=== PATIENT | female | born 1940 | race Caucasian/White ===

== ENCOUNTER 2017-07-21 07:58 | Outpatient (CLI) | payer MEDICARE, OTHER ==
[~2017-07-21 07:58] MED LIST: ASPI-845 PO; BIOT0.5P PO; CHOL500050 PO; CHRO400T10 PO; CRAN1CAP2 PO; FEXO180T94 PO; FLUT16SP10 NS; FURO-149 PO; GLUC-133 PO; IBUP-24 PO; L. A1CAP7 PO; LEVO88TA2 PO; LOVA20TA2 PO; MAGN400C PO; MULT-1085 PO; NIAC1CAP PO; OMEG1CAP20 PO; POTA10TA10 PO; PRAS25CA7 PO; PROGESTERONE PO; UBID1CAP54 PO; VITC500T PO; [UNRECOGNIZED DRUG - CODE] PO
[2017-07-21 08:41] LABS: BASOPHILS % (AUTO) 0.7 % (0-1); EOSINOPHILS # (AUTO) 0.2 X10'3 (0-0.9); EOSINOPHILS % (AUTO) 4.2 % (0-6); HEMATOCRIT 38.9 % (35.0-45.0); HEMOGLOBIN 13.2 g/dl (12.0-16.0); LYMPHOCYTES # (AUTO) 1.2 X10'3 (1.1-4.8); LYMPHOCYTES % (AUTO) 25.2 % (21-51); MEAN CORPUSCULAR HEMOGLOBIN 31.3 PG (27.0-31.0); MEAN CORPUSCULAR VOLUME 91.9 FL (78-98); MEAN PLATELET VOLUME 7.4 FL (7.4-10.4); MONOCYTES # (AUTO) 0.4 X10'3 (0-0.9); MONOCYTES % (AUTO) 8.2 % (2-12); NEUTROPHILS % (AUTO) 61.7 % (42-75); PLATELET COUNT 258 X10'3 (140-440); RED BLOOD COUNT 4.23 X10'6 (4.20-5.60); RED CELL DISTRIBUTION WIDTH 12.6 % (11.5-14.5); WHITE BLOOD COUNT 4.8 X10'3 (4.5-11.0)
[2017-07-21 08:53] LABS: CHLORIDE 106 MMOL/L (99-107); GLUCOSE 98 MG/DL (70-104); POTASSIUM 4.4 MMOL/L (3.5-5.1); SODIUM 142 MMOL/L (135-145); TOTAL CARBON DIOXIDE 27.8 MMOL/L (24-32)
[2017-07-21 08:54] LABS: ALANINE AMINOTRANSFERASE 25 U/L (12-78); ALBUMIN 3.9 G/DL (3.4-5.0); ALBUMIN/GLOBULIN RATIO 1.1 (1.1-1.5); ALKALINE PHOSPHATASE 67 IU/L (46-116); ANION GAP 8 (8-16); ASPARTATE AMINO TRANSFERASE 21 U/L (10-37); BLOOD UREA NITROGEN 30 MG/DL (7-18); BUN/CREATININE RATIO 27.8 (6.6-38.0); CALCIUM 10.3 MG/DL (8.5-10.1); CREATININE 1.08 MG/DL (0.40-0.90); TOTAL PROTEIN 7.6 G/DL (6.4-8.2); eGFR 50 ML/MIN
== END 2017-07-21 23:59 | disposition home or self-care (01) ==
LOC: LAB 07:58
PROVIDERS: ATTEND Specialist
DX: Z01.818 Encounter for other preprocedural examination (principal); Z51.81 Encounter for therapeutic drug level monitoring; N39.0 Urinary tract infection, site not specified; I10 Essential (primary) hypertension
CPT/HCPCS: 36415; 80053; 85025; 85610; 87070

== ENCOUNTER 2017-08-04 08:35 | Inpatient (IN) | payer MEDICARE, OTHER ==
[~2017-08-04] VITALS: Ht 180.3 cm; Wt 93.3 kg
[2017-08-04] VITALS (17 sets, daily range): BP systolic 124–157; BP diastolic 43–79
[~2017-08-04 08:35] MED LIST changes: +ACET-2119 PO; +ACID1TAB4 PO; +ALPR-623 PO; -ASPI-845 PO; +ASPI81TA52 PO; -BIOT0.5P PO; +CELE-85 PO; +CHOL100034 PO; -CHOL500050 PO; +CHRO200C PO; -CHRO400T10 PO; -CRAN1CAP2 PO; +CRAN300T PO; +DOCU-28 PO; +ENAL10TA78 PO; -GLUC-133 PO; -IBUP-24 PO; -L. A1CAP7 PO; -LOVA20TA2 PO; -MAGN400C PO; +MAGN400T29 PO; -NIAC1CAP PO; +NIAC500T23 PO; -PROGESTERONE PO; +ROSU20TA38 PO; +VITA150T PO; +ZINC50TA4 PO; -[UNRECOGNIZED DRUG - CODE] PO; +acetaminophen 325mg tablet PO ONE; +cefazolin/dext.iso 2gm/50ml 50 ML IV ONE; +celeCOXIB 100mg capsule PO ONE; +famotidine 20mg tablet PO ONE; +gabapentin 300mg capsule PO ONE; +oxyCODONE SR 10mg (sust. release) tab PO ONE; +ringers solution, lacted 1,000 ML IV SCH; +tranexamic acid inj. 1,000 MG in normal saline 100ml IV soln 90 ML IV ONE
[2017-08-04] MEDS ORDERED: LIDOcaine 1% (10mg/ml) 2ml vial ONE (09:05)
[2017-08-04] MEDS ORDERED: bacitracin inj 150,000 UNIT in sodium chloride irrig. sol 3,000 ML IR ONE (10:00)
[2017-08-04] MEDS ORDERED: ROPIVAcaine 0.5% (5mg/ml) 30ml vial ONE (10:14)
[2017-08-04] MEDS ORDERED: MIDAZolam 5mg/5ml vial ONE (10:16)
[2017-08-04] MEDS ORDERED: fentaNYL/PF 50MCG/1 ML 2ML syringe ONE (10:17)
[2017-08-04] MEDS ORDERED: BUPIVAcaine 0.5% inj/PF 30 ml vial ONE (10:23)
[2017-08-04] MEDS ORDERED: morphine /PF 1mg/ml 10ml inj. ONE (10:24)
[2017-08-04] MEDS ORDERED: glycopyrrolate 0.2mg/ml inj ONE (10:45)
[2017-08-04] MEDS ORDERED: ringers solution, lacted 1,000 ML IV SCH (11:46)
[2017-08-04] MEDS ORDERED: diphenhydrAMINE 50 mg/ml inj IV PRN (11:50)
[2017-08-04] MEDS ORDERED: fentaNYL/PF 50MCG/1 ML 2ML syringe IV PRN (11:50)
[2017-08-04] MEDS ORDERED: HYDROmorphone inj. 0.5 MG/0.5 ML DISP.SYRIN IV PRN ×2 (11:50→13:05)
[2017-08-04] MEDS ORDERED: ondansetron/PF 4mg/2ml inj IV PRN ×3 (11:50→13:05)
[2017-08-04] MEDS ORDERED: bisacodyl 10mg suppository rectal RC PRN (13:05)
[2017-08-04] MEDS ORDERED: magnesium hydroxide 30ml (MOM) UD suspension PO PRN (13:05)
[2017-08-04] MEDS ORDERED: acetaminophen 325mg tablet PO PRN (13:05)
[2017-08-04] MEDS ORDERED: diphenhydrAMINE 25mg capsule PO PRN ×2 (13:05)
[2017-08-04] MEDS ORDERED: propofol inj 20 ML IV ONE ×2 (13:29)
[2017-08-04] MEDS ORDERED: ceFAZolin 1000mg inj ONE (13:29)
[2017-08-04] MEDS: potassium cl 20mEq in 1/2 NS 1,000 ML IV SCH ×2 (15:51→23:49)
[2017-08-04] MEDS: ceFAZolin 1GM/D5W- ADD-VANTAGE 50 ML IV SCH ×2 (15:51→23:32)
[2017-08-04] MEDS: ascorbic acid 500mg tablet PO SCH (20:19)
[2017-08-04] MEDS: sennosides 8.6mg tablet PO SCH (20:19)
[2017-08-04] MEDS: gabapentin 300mg capsule PO SCH (20:19)
[2017-08-04] MEDS: oxyCODONE/APAP 10/325mg tablet PO PRN (23:39)
[2017-08-05 02:00] VITALS: BP 160/74
[2017-08-05] MEDS: oxyCODONE/APAP 10/325mg tablet PO PRN ×4 (05:00→23:53)
[2017-08-05] MEDS: potassium cl 20mEq in 1/2 NS 1,000 ML IV SCH ×3 (05:04→21:04)
[2017-08-05 05:24] LABS: BASOPHILS % (AUTO) 0.3 % (0-1); EOSINOPHILS # (AUTO) 0.1 X10'3 (0-0.9); EOSINOPHILS % (AUTO) 1.2 % (0-6); HEMATOCRIT 34.7 % (35.0-45.0); HEMOGLOBIN 11.9 g/dl (12.0-16.0); LYMPHOCYTES # (AUTO) 0.9 X10'3 (1.1-4.8); LYMPHOCYTES % (AUTO) 12.6 % (21-51); MEAN CORPUSCULAR HEMOGLOBIN 31.9 PG (27.0-31.0); MEAN CORPUSCULAR HGB CONC 34.3 % (33.0-36.5); MEAN CORPUSCULAR VOLUME 92.8 FL (78-98); MONOCYTES # (AUTO) 0.5 X10'3 (0-0.9); MONOCYTES % (AUTO) 6.9 % (2-12); NEUTROPHILS # (AUTO) 5.7 X10'3 (1.8-7.7); PLATELET COUNT 195 X10'3 (140-440); RED BLOOD COUNT 3.74 X10'6 (4.20-5.60); RED CELL DISTRIBUTION WIDTH 13.3 % (11.5-14.5); WHITE BLOOD COUNT 7.3 X10'3 (4.5-11.0)
[2017-08-05 05:36] LABS: INR 1.1 INR; PROTHROMBIN TIME 11.1 SECONDS (9.0-12.0)
[2017-08-05 05:39] LABS: ANION GAP 6 (8-16); CHLORIDE 106 MMOL/L (99-107); POTASSIUM 4.6 MMOL/L (3.5-5.1); SODIUM 139 MMOL/L (135-145); TOTAL CARBON DIOXIDE 26.9 MMOL/L (24-32)
[2017-08-05 08:00] VITALS: BP 150/72
[2017-08-05] MEDS: atorvastatin 20mg tablet PO SCH (08:58)
[2017-08-05] MEDS: furosemide 40mg tablet PO SCH (08:58)
[2017-08-05] MEDS: levoTHYROXINE 88mcg tablet PO SCH (08:59)
[2017-08-05] MEDS: potassium chloride 10mEq ER tablet PO SCH (08:59)
[2017-08-05] MEDS: ascorbic acid 500mg tablet PO SCH ×2 (08:59→20:31)
[2017-08-05] MEDS: lisinopril 10 MG tablet PO SCH (08:59)
[2017-08-05] MEDS: multivitamins, therapeutics tablet PO SCH (09:00)
[2017-08-05] MEDS: gabapentin 300mg capsule PO SCH ×3 (09:00→20:44)
[2017-08-05 10:00] VITALS: BP 117/47
[2017-08-05] MEDS ORDERED: warfarin 7.5mg tablet PO ONE (10:00)
[2017-08-05 18:00] VITALS: BP 108/51
[2017-08-05] MEDS: Protein Shake (high protein) 240ml (8oz) cup PO SCH (18:00)
[2017-08-05] MEDS: celeCOXIB 100mg capsule PO SCH (20:30)
[2017-08-05] MEDS: sennosides 8.6mg tablet PO SCH (20:31)
[2017-08-05 22:00] VITALS: BP 91/58
[2017-08-06] VITALS (8 sets, daily range): BP systolic 97–160; BP diastolic 37–77
[2017-08-06] MEDS: oxyCODONE/APAP 10/325mg tablet PO PRN ×3 (04:20→14:51)
[2017-08-06 05:28] LABS: INR 1.2 INR; PROTHROMBIN TIME 12.2 SECONDS (9.0-12.0)
[2017-08-06 05:35] LABS: BASOPHILS % (AUTO) 0 % (0-1); EOSINOPHILS # (AUTO) 0.2 X10'3 (0-0.9); EOSINOPHILS % (AUTO) 2.1 % (0-6); HEMATOCRIT 27.1 % (35.0-45.0); HEMOGLOBIN 9.4 g/dl (12.0-16.0); LYMPHOCYTES # (AUTO) 0.7 X10'3 (1.1-4.8); LYMPHOCYTES % (AUTO) 8.8 % (21-51); MEAN CORPUSCULAR HEMOGLOBIN 32.7 PG (27.0-31.0); MEAN CORPUSCULAR HGB CONC 34.9 % (33.0-36.5); MEAN CORPUSCULAR VOLUME 93.7 FL (78-98); MEAN PLATELET VOLUME 7.5 FL (7.4-10.4); MONOCYTES # (AUTO) 0.6 X10'3 (0-0.9); MONOCYTES % (AUTO) 8.7 % (2-12); NEUTROPHILS % (AUTO) 80.4 % (42-75); PLATELET COUNT 162 X10'3 (140-440); RED BLOOD COUNT 2.89 X10'6 (4.20-5.60); RED CELL DISTRIBUTION WIDTH 13.2 % (11.5-14.5); WHITE BLOOD COUNT 7.4 X10'3 (4.5-11.0)
[2017-08-06] MEDS: multivitamins, therapeutics tablet PO SCH (07:44)
[2017-08-06] MEDS: levoTHYROXINE 88mcg tablet PO SCH (07:44)
[2017-08-06] MEDS: ascorbic acid 500mg tablet PO SCH ×2 (07:44→21:57)
[2017-08-06] MEDS: atorvastatin 20mg tablet PO SCH (07:45)
[2017-08-06] MEDS: celeCOXIB 100mg capsule PO SCH ×2 (07:45→21:57)
[2017-08-06] MEDS: potassium chloride 10mEq ER tablet PO SCH (07:49)
[2017-08-06] MEDS: lisinopril 10 MG tablet PO SCH (07:49)
[2017-08-06] MEDS: furosemide 40mg tablet PO SCH (07:49)
[2017-08-06] MEDS: Protein Shake (high protein) 240ml (8oz) cup PO SCH ×3 (08:00→18:00)
[2017-08-06] MEDS ORDERED: warfarin 7.5mg tablet PO ONE (10:00)
[2017-08-06] MEDS ORDERED: acetaminophen 325mg tablet PO PRN (13:05)
[2017-08-06] MEDS ORDERED: oxyCODONE IR 5mg (immed. release) tablet PO PRN ×2 (19:25)
[2017-08-06] MEDS: sennosides 8.6mg tablet PO SCH (21:56)
[2017-08-07] MEDS: oxyCODONE/APAP 10/325mg tablet PO PRN ×3 (02:46→13:42)
[2017-08-07 05:48] LABS: INR 1.3 INR; PROTHROMBIN TIME 13.7 SECONDS (9.0-12.0)
[2017-08-07 05:51] LABS: BASOPHILS % (AUTO) 0 % (0-1); EOSINOPHILS # (AUTO) 0.2 X10'3 (0-0.9); EOSINOPHILS % (AUTO) 3.3 % (0-6); HEMATOCRIT 29.3 % (35.0-45.0); LYMPHOCYTES # (AUTO) 0.8 X10'3 (1.1-4.8); LYMPHOCYTES % (AUTO) 10.8 % (21-51); MEAN CORPUSCULAR HEMOGLOBIN 32.2 PG (27.0-31.0); MEAN CORPUSCULAR VOLUME 94.6 FL (78-98); MEAN PLATELET VOLUME 7.9 FL (7.4-10.4); MONOCYTES # (AUTO) 0.7 X10'3 (0-0.9); MONOCYTES % (AUTO) 9.3 % (2-12); NEUTROPHILS # (AUTO) 5.6 X10'3 (1.8-7.7); NEUTROPHILS % (AUTO) 76.6 % (42-75); PLATELET COUNT 193 X10'3 (140-440); RED CELL DISTRIBUTION WIDTH 13.4 % (11.5-14.5); WHITE BLOOD COUNT 7.3 X10'3 (4.5-11.0)
[2017-08-07 06:53] VITALS: BP 133/58
[2017-08-07] MEDS: furosemide 40mg tablet PO SCH (07:25)
[2017-08-07] MEDS: potassium chloride 10mEq ER tablet PO SCH (07:25)
[2017-08-07] MEDS: celeCOXIB 100mg capsule PO SCH (07:25)
[2017-08-07] MEDS: multivitamins, therapeutics tablet PO SCH (07:26)
[2017-08-07] MEDS: atorvastatin 20mg tablet PO SCH (07:26)
[2017-08-07] MEDS: ascorbic acid 500mg tablet PO SCH (07:26)
[2017-08-07] MEDS: levoTHYROXINE 88mcg tablet PO SCH (07:26)
[2017-08-07] MEDS: lisinopril 10 MG tablet PO SCH (07:26)
[2017-08-07 07:30] VITALS: BP 142/60
[2017-08-07] MEDS: Protein Shake (high protein) 240ml (8oz) cup PO SCH ×2 (08:00→13:49)
[2017-08-07] MEDS ORDERED: warfarin 7.5mg tablet PO ONE (10:00)
[2017-08-07 10:25] VITALS: BP 92/43
[2017-08-07 10:26] VITALS: BP 169/52
== END 2017-08-07 14:55 | DRG 470 ==
LOC: PRE-OP 08:35 → PAS IN 08:36 → EDSTATUS 11:00 → ORTHO 4S 15:00
PROVIDERS: ADMIT Specialist; ATTEND Specialist
PROC: 3E0T3BZ Introduction of Anesthetic Agent into Peripheral Nerves and Plexi, Percutaneous Approach (ICD-10-PCS; 2017-08-04)
PROC: 0SRD0J9 Replacement of Left Knee Joint with Synthetic Substitute, Cemented, Open Approach (ICD-10-PCS; principal; 2017-08-04 10:45)
DX: M17.12 Unilateral primary osteoarthritis, left knee (principal); D62 Acute posthemorrhagic anemia; E03.9 Hypothyroidism, unspecified; I10 Essential (primary) hypertension; F41.9 Anxiety disorder, unspecified; I25.10 Atherosclerotic heart disease of native coronary artery without angina pectoris; E78.5 Hyperlipidemia, unspecified; M21.062 Valgus deformity, not elsewhere classified, left knee; Z96.651 Presence of right artificial knee joint; Z98.51 Tubal ligation status; Z91.048 Other nonmedicinal substance allergy status; Z79.899 Other long term (current) drug therapy
CPT/HCPCS: 36415; 73560; 80051; 85025; 85610; 97110; 97116; 97162; 97530; A4353; A6449; A6455; A7000; C1713; C1758; C1776; J0690; J2250; J2274; J2405; J2704; J2795; J3010; J3490; J7030; J7120

== ENCOUNTER 2018-04-30 13:29 | Emergency (ER) | payer MEDICARE, OTHER ==
[~2018-04-30] VITALS: Ht 182.9 cm; Wt 86.0 kg
[~2018-04-30 13:29] MED LIST changes: -CHRO200C PO; +CHRO200C4 PO; +ROSU20TA30 PO; -ROSU20TA38 PO; -acetaminophen 325mg tablet PO ONE; -cefazolin/dext.iso 2gm/50ml 50 ML IV ONE; -celeCOXIB 100mg capsule PO ONE; -famotidine 20mg tablet PO ONE; -gabapentin 300mg capsule PO ONE; -oxyCODONE SR 10mg (sust. release) tab PO ONE; -ringers solution, lacted 1,000 ML IV SCH; -tranexamic acid inj. 1,000 MG in normal saline 100ml IV soln 90 ML IV ONE
[2018-04-30] MEDS ORDERED: ketorolac trometh. 30mg/ml inj. IM ONE (14:05)
[2018-04-30] MEDS ORDERED: HYDROcodone/acetaminophen 10/325mg tab PO ONE (14:05)
[2018-04-30] MEDS ORDERED: ketorolac trometh inj. 60 MG/2 ML VIAL IM ONE (14:25)
[2018-04-30 15:15] VITALS: BP 149/74
== END 2018-04-30 15:20 | disposition home or self-care (01) ==
LOC: ER 13:30
DX: M53.3 Sacrococcygeal disorders, not elsewhere classified (principal); I10 Essential (primary) hypertension; Z98.890 Other specified postprocedural states; Z88.8 Allergy status to other drugs, medicaments and biological substances; Z79.82 Long term (current) use of aspirin; Z79.899 Other long term (current) drug therapy; W01.0XXA Fall on same level from slipping, tripping and stumbling without subsequent striking against object, initial encounter; Y93.89 Activity, other specified; Y92.89 Other specified places as the place of occurrence of the external cause; Y99.8 Other external cause status
CPT/HCPCS: 96372; 99284; J1885

== ENCOUNTER 2019-07-09 05:34 | Inpatient (IN) | payer MEDICARE, OTHER ==
[2019-07-01 17:00] LABS: BASOPHILS % (AUTO) 0.6 % (0-1); EOSINOPHILS # (AUTO) 0.2 X10'3 (0-0.9); EOSINOPHILS % (AUTO) 2.8 % (0-6); LYMPHOCYTES # (AUTO) 1.7 X10'3 (1.1-4.8); LYMPHOCYTES % (AUTO) 25.8 % (21-51); MEAN CORPUSCULAR HGB CONC 34.3 g/dL (33.0-36.5); MEAN CORPUSCULAR VOLUME 93.2 FL (78-98); MEAN PLATELET VOLUME 7.8 FL (7.4-10.4); MONOCYTES # (AUTO) 0.5 X10'3 (0-0.9); MONOCYTES % (AUTO) 7.8 % (2-12); NEUTROPHILS # (AUTO) 4.1 X10'3 (1.8-7.7); PRE OP HEMATOCRIT 36.3 % (35.0-45.0); PRE OP HEMOGLOBIN 12.4 g/dL (12.0-16.0); PRE OP PLATELET COUNT 238 X10'3 (140-440); PRE OP PROTIME 10.3 SECONDS (9.0-12.0); RED BLOOD COUNT 3.89 X10'6 (4.20-5.60); RED CELL DISTRIBUTION WIDTH 13.5 % (11.5-14.5)
[2019-07-01 17:13] LABS: ALBUMIN/GLOBULIN RATIO 1.1 (1.1-1.5); ALKALINE PHOSPHATASE 69 IU/L (46-116); BLOOD UREA NITROGEN 28 MG/DL (7-18); BUN/CREATININE RATIO 25.7 (6.6-38.0); CALCIUM 10.1 MG/DL (8.5-10.1); CHLORIDE 105 MMOL/L (99-107); CREATININE 1.09 MG/DL (0.40-0.90); PRE OP ALT 14 U/L (30-65); PRE OP ANION GAP 8 (8-16); PRE OP AST 18 U/L (10-37); PRE OP BILIRUB, TOTAL 0.7 MG/DL (0.0-1.0); PRE OP GLUCOSE 97 MG/DL (70-104); PRE OP POTASSIUM 4.3 MMOL/L (3.4-5.1); PRE OP SODIUM 141 MMOL/L (135-145); TOTAL PROTEIN 7.5 G/DL (6.4-8.2); eGFR 49 ML/MIN
[~2019-07-09] VITALS: Ht 180.3 cm; Wt 81.6 kg
[2019-07-09] VITALS (15 sets, daily range): BP systolic 122–183; BP diastolic 65–82
[~2019-07-09 05:34] MED LIST changes: -ACET-2119 PO; -ACID1TAB4 PO; +CALC-1197 PO; -CELE-85 PO; -CHRO200C4 PO; -CRAN300T PO; -FEXO180T94 PO; -FLUT16SP10 NS; +HYDR-3972 PO; +LACT1CAP65 PO; -NIAC500T23 PO; -OMEG1CAP20 PO; -POTA10TA10 PO; -PRAS25CA7 PO; -ROSU20TA30 PO; +ROSU20TA31 PO; -UBID1CAP54 PO; -VITA150T PO; +cefazolin/dext.iso 2gm/100ml 100 ML IV ONE; +famotidine 20mg tablet PO ONE; +ringers solution, lacted 1,000 ML IV SCH
[2019-07-09] MEDS ORDERED: LIDOcaine 1% (10mg/ml) 2ml vial ONE (05:49)
[2019-07-09] MEDS ORDERED: midazolam 2 mg/2 ml injection ONE (07:13)
[2019-07-09] MEDS ORDERED: fentaNYL /PF 50mcg/ml 5ml ampule ONE (07:13)
[2019-07-09] MEDS ORDERED: propofol inj 20 ML IV ONE (07:13)
[2019-07-09] MEDS ORDERED: rocuronium 10mg/ml inj IV ONE (07:13)
[2019-07-09] MEDS ORDERED: ringers solution, lacted 1,000 ML IV SCH (08:32)
[2019-07-09] MEDS ORDERED: ondansetron/PF 4mg/2ml inj IV PRN (08:35)
[2019-07-09] MEDS ORDERED: morphine 4 MG/ML inj SYRINge IV PRN (08:35)
[2019-07-09] MEDS ORDERED: proCHLORperazine 10 MG/2 ml inj IV PRN (08:35)
[2019-07-09] MEDS ORDERED: meperidine/PF 25mg/ml syringe IV PRN ×3 (08:35)
[2019-07-09] MEDS ORDERED: morphine 2 MG/ML inj. syringe IV PRN (08:35)
[2019-07-09] MEDS ORDERED: ePHEDrine 50MG/ML INJ. ONE (10:41)
[2019-07-09] MEDS ORDERED: dexamethasone sod phosphate 4mg/ml inj. ONE (10:41)
[2019-07-09] MEDS ORDERED: ondansetron/PF 4mg/2ml inj ONE (10:41)
[2019-07-09] MEDS ORDERED: acetaminophen 1,000mg/100ml IV 100 ML IV ONE (10:42)
[2019-07-09] MEDS ORDERED: HYDROmorphone inj. 0.5 MG/0.5 ML DISP.SYRIN IV PRN (11:10)
--- NOTE | 2019-07-09 11:15 | NUR ---
Received from OR via BED , accompanied by Anesthesiologist DR BEAUCHAMP and report given by Anesthesiolgist. PATIENT WAKING UP, DENIES PAIN, V/S WNL, CSM INTACT, DRESSING TO LEFT SIDE CDI, SCD ON, 18G RUE. F/C DRAINIGN CLEAR YELLOW URINE
--- NOTE | 2019-07-09 11:55 | NUR ---
PATIENT SLEEPY BUT ORIENTED X4, DENIES PAIN, V/S WNL, CSM INTACT, DRESSING TO LEFT SIDE CDI, SCD ON, 18G RUE. F/C DRAINING CLEAR YELLOW URINE. PATIENT TAKEN TO 344A WITH ALL BELONGINGS AND HOOKED UP TO MONITORS IN ROOM AND REPORT GIVEN TO UTILITY WORKER PRODUCTION WHO HAS TAKEN OVER PATIENT CARE.
[2019-07-09] MEDS: HYDROcodone/acetaminophen 5mg/325mg tablet PO PRN ×3 (12:33→22:32)
[2019-07-09] MEDS: ondansetron/PF 4mg/2ml inj IV PRN ×2 (13:43→20:01)
[2019-07-09] MEDS: potassium cl 20mEq in 1/2 NS 1,000 ML IV SCH ×2 (16:48→19:10)
[2019-07-09] MEDS: atorvastatin 20mg tablet PO SCH (16:48)
[2019-07-09] MEDS ORDERED: opium/belladonna alkaloids No. 15A 30mg rectal suppository RC PRN (17:15)
[2019-07-09] MEDS ORDERED: hydrALAZINE 20mg/ml inj. IV PRN (17:20)
[2019-07-09] MEDS ORDERED: lisinopril 10 MG tablet PO ONE ×2 (17:25)
[2019-07-09] MEDS ORDERED: furosemide 20MG tablet PO ONE (17:25)
--- NOTE | 2019-07-09 18:30 | NUR ---
Problems reprioritized. Patient report given, questions answered & plan of care reviewed with TATY Agustin.
--- NOTE | 2019-07-09 18:32 | NUR ---
Patient in room [facility]. I have received report from CHEMA OPSEY and had the opportunity to ask questions and assume patient care.
[2019-07-09] MEDS: ALPRAZolam 0.5mg tablet PO PRN (22:32)
[2019-07-10] VITALS: BP 185/62
[2019-07-10] MEDS: potassium cl 20mEq in 1/2 NS 1,000 ML IV SCH (00:38)
[2019-07-10 01:05] VITALS: BP 158/66
[2019-07-10] MEDS: HYDROcodone/acetaminophen 5mg/325mg tablet PO PRN ×5 (02:52→21:42)
[2019-07-10 04:00] VITALS: BP 135/51
[2019-07-10 05:19] LABS: BASOPHILS % (AUTO) 0.5 % (0-1); EOSINOPHILS % (AUTO) 0.4 % (0-6); HEMATOCRIT 31.6 % (35.0-45.0); HEMOGLOBIN 10.6 g/dl (12.0-16.0); LYMPHOCYTES # (AUTO) 1.1 X10'3 (1.1-4.8); LYMPHOCYTES % (AUTO) 15.2 % (21-51); MEAN CORPUSCULAR HEMOGLOBIN 31.4 PG (27.0-31.0); MEAN CORPUSCULAR HGB CONC 33.7 g/dL (33.0-36.5); MEAN CORPUSCULAR VOLUME 93.1 FL (78-98); MEAN PLATELET VOLUME 7.9 FL (7.4-10.4); MONOCYTES # (AUTO) 0.7 X10'3 (0-0.9); MONOCYTES % (AUTO) 9.7 % (2-12); NEUTROPHILS # (AUTO) 5.3 X10'3 (1.8-7.7); NEUTROPHILS % (AUTO) 74.2 % (42-75); PLATELET COUNT 186 X10'3 (140-440); RED BLOOD COUNT 3.39 X10'6 (4.20-5.60); RED CELL DISTRIBUTION WIDTH 13.7 % (11.5-14.5); WHITE BLOOD COUNT 7.2 X10'3 (4.5-11.0)
[2019-07-10 05:45] LABS: ALBUMIN 2.9 G/DL (3.4-5.0); ANION GAP 7 (8-16); BLOOD UREA NITROGEN 25 MG/DL (7-18); BUN/CREATININE RATIO 18.7 (6.6-38.0); CALCIUM 9.4 MG/DL (8.5-10.1); CHLORIDE 110 MMOL/L (99-107); CREATININE 1.34 MG/DL (0.40-0.90); GLUCOSE 87 MG/DL (70-104); SODIUM 141 MMOL/L (135-145); TOTAL CARBON DIOXIDE 24.1 MMOL/L (24-32); eGFR 38 ML/MIN
--- NOTE | 2019-07-10 06:17 | NUR ---
Problems reprioritized. Patient report given, questions answered & plan of care reviewed with TIFFANI POSEY.
[2019-07-10 07:29] VITALS: BP 137/54
[2019-07-10] MEDS: docusate sod 100mg capsule PO SCH (08:08)
[2019-07-10] MEDS: furosemide 20MG tablet PO SCH (08:09)
[2019-07-10] MEDS: levoTHYROXINE 88mcg tablet PO SCH (08:09)
[2019-07-10] MEDS: ondansetron/PF 4mg/2ml inj IV PRN ×2 (08:10→21:42)
[2019-07-10] MEDS: lisinopril 10 MG tablet PO SCH (08:14)
[2019-07-10] MEDS ORDERED: sodium chloride 0.45% 1,000 ML IV SCH (10:00)
[2019-07-10] MEDS: sodium chloride 0.45% 1,000 ML IV SCH ×2 (10:11→17:15)
[2019-07-10 11:00] VITALS: BP 125/49
--- NOTE | 2019-07-10 13:52 | NUR ---
PT. AMBULATED MAYBE 20FT WITH MIN ASSIST ONE PERSON AND FWW. REFUSED TO GO ANY FURTHER STATING HER LEGS FELT WEAK. REFUSING TO SIT UP IN CHAIR PROVIDED. EDUCATION PROVIDED ON RESPIRATORY MEASURES, GOOD POSTURE, POST-OP GOALS, EXERCISE. PT. STILL REFUSING TO INITIATE PROGRESSIVE MOVEMENT AND ACTIVITY. WILL CONT. TO ENCOURAGE AND EDUCATE.
[2019-07-10] MEDS: atorvastatin 20mg tablet PO SCH (17:15)
--- NOTE | 2019-07-10 18:12 | NUR ---
Gave report to Nikole POSEY.
--- NOTE | 2019-07-10 18:30 | NUR ---
Patient in room [facility]. I have received report from TIFFANI POSEY and had the opportunity to ask questions and assume patient care.
[2019-07-10 20:00] VITALS: BP 158/61
[2019-07-10] MEDS: ALPRAZolam 0.5mg tablet PO PRN (21:41)
[2019-07-11] VITALS: BP 155/63
[2019-07-11] MEDS: sodium chloride 0.45% 1,000 ML IV SCH ×2 (03:43→16:16)
[2019-07-11] MEDS: HYDROcodone/acetaminophen 5mg/325mg tablet PO PRN ×5 (03:43→23:06)
[2019-07-11 05:23] LABS: BASOPHILS % (AUTO) 0.4 % (0-1); EOSINOPHILS # (AUTO) 0.3 X10'3 (0-0.9); EOSINOPHILS % (AUTO) 4.2 % (0-6); HEMOGLOBIN 12.1 g/dl (12.0-16.0); LYMPHOCYTES # (AUTO) 1.1 X10'3 (1.1-4.8); LYMPHOCYTES % (AUTO) 13.6 % (21-51); MEAN CORPUSCULAR HEMOGLOBIN 31.5 PG (27.0-31.0); MEAN CORPUSCULAR HGB CONC 33.5 g/dL (33.0-36.5); MONOCYTES # (AUTO) 0.7 X10'3 (0-0.9); MONOCYTES % (AUTO) 9.1 % (2-12); NEUTROPHILS # (AUTO) 5.9 X10'3 (1.8-7.7); NEUTROPHILS % (AUTO) 72.7 % (42-75); PLATELET COUNT 198 X10'3 (140-440); RED BLOOD COUNT 3.83 X10'6 (4.20-5.60); RED CELL DISTRIBUTION WIDTH 13.7 % (11.5-14.5); WHITE BLOOD COUNT 8.1 X10'3 (4.5-11.0)
[2019-07-11 05:49] LABS: ALBUMIN 3.1 G/DL (3.4-5.0); ANION GAP 9 (8-16); BLOOD UREA NITROGEN 20 MG/DL (7-18); BUN/CREATININE RATIO 14.6 (6.6-38.0); CALCIUM 9.7 MG/DL (8.5-10.1); CHLORIDE 108 MMOL/L (99-107); CREATININE 1.37 MG/DL (0.40-0.90); GLUCOSE 79 MG/DL (70-104); POTASSIUM 4.2 MMOL/L (3.5-5.1); SODIUM 140 MMOL/L (135-145); TOTAL CARBON DIOXIDE 23.4 MMOL/L (24-32); eGFR 37 ML/MIN
--- NOTE | 2019-07-11 06:21 | NUR ---
Problems reprioritized. Patient report given, questions answered & plan of care reviewed with TIFFANI POSEY.
[2019-07-11 07:15] VITALS: BP 112/54
[2019-07-11] MEDS: furosemide 20MG tablet PO SCH (08:19)
[2019-07-11] MEDS: docusate sod 100mg capsule PO SCH ×2 (08:19→20:27)
[2019-07-11] MEDS: levoTHYROXINE 88mcg tablet PO SCH (08:19)
[2019-07-11] MEDS: lisinopril 10 MG tablet PO SCH (08:20)
[2019-07-11 11:13] VITALS: BP 131/55
--- NOTE | 2019-07-11 14:59 | NUR ---
Spoke with MD Francis covering for MD Stanton on the phone. Discussed the fact that the pt. has not voided by herself since F/C removed at 0500 this AM. states Maximino wants pt. to progress to going home so not to put a F/C unless pt. persisently requests F/C rather than straight cath. Otherwise MD Francis states to follow hospital protocol and to bladder scan if no void every 6 hours and straight cath if over 400ml. If pt. voids bladder scan for post residuals.
[2019-07-11] MEDS: atorvastatin 20mg tablet PO SCH (16:55)
--- NOTE | 2019-07-11 18:26 | NUR ---
Gave report to Yanci Stevens RN.
--- NOTE | 2019-07-11 18:35 | NUR ---
Patient in room [facility]. I have received report from TATY Lora and had the opportunity to ask questions and assume patient care. Addendum: 07/11/19 at 1836 by Polly Barrios RN Amended: Links added.
[2019-07-11 19:36] VITALS: BP 125/71
[2019-07-11] MEDS ORDERED: docusate sod 100mg capsule PO SCH (20:00)
[2019-07-11] MEDS: polyethylene glycol 3350 17gm powd pack PO SCH (20:28)
[2019-07-11] MEDS: ALPRAZolam 0.5mg tablet PO PRN (23:06)
[2019-07-11 23:19] VITALS: BP 153/60
[2019-07-12] MEDS: sodium chloride 0.45% 1,000 ML IV SCH ×3 (02:13→22:13)
[2019-07-12 05:18] LABS: BASOPHILS % (AUTO) 0.6 % (0-1); EOSINOPHILS # (AUTO) 0.4 X10'3 (0-0.9); EOSINOPHILS % (AUTO) 6.1 % (0-6); HEMATOCRIT 32.7 % (35.0-45.0); HEMOGLOBIN 11.2 g/dl (12.0-16.0); LYMPHOCYTES # (AUTO) 1.1 X10'3 (1.1-4.8); MEAN CORPUSCULAR HEMOGLOBIN 32.1 PG (27.0-31.0); MEAN CORPUSCULAR HGB CONC 34.3 g/dL (33.0-36.5); MEAN CORPUSCULAR VOLUME 93.5 FL (78-98); MEAN PLATELET VOLUME 7.9 FL (7.4-10.4); MONOCYTES # (AUTO) 0.8 X10'3 (0-0.9); MONOCYTES % (AUTO) 10.5 % (2-12); NEUTROPHILS # (AUTO) 4.9 X10'3 (1.8-7.7); NEUTROPHILS % (AUTO) 67.8 % (42-75); PLATELET COUNT 186 X10'3 (140-440); RED CELL DISTRIBUTION WIDTH 13.4 % (11.5-14.5); WHITE BLOOD COUNT 7.2 X10'3 (4.5-11.0)
[2019-07-12 05:26] LABS: ALBUMIN 2.6 G/DL (3.4-5.0); ANION GAP 6 (8-16); BLOOD UREA NITROGEN 20 MG/DL (7-18); BUN/CREATININE RATIO 15.4 (6.6-38.0); CALCIUM 9.4 MG/DL (8.5-10.1); CHLORIDE 108 MMOL/L (99-107); GLUCOSE 93 MG/DL (70-104); SODIUM 139 MMOL/L (135-145); TOTAL CARBON DIOXIDE 24.6 MMOL/L (24-32); eGFR 40 ML/MIN
[2019-07-12] MEDS: HYDROcodone/acetaminophen 5mg/325mg tablet PO PRN ×4 (05:38→22:07)
--- NOTE | 2019-07-12 06:28 | NUR ---
Problems reprioritized. Patient report given, questions answered & plan of care reviewed with TATY Webster.
[2019-07-12 07:00] VITALS: BP 122/55
[2019-07-12] MEDS: docusate sod 100mg capsule PO SCH ×2 (08:28→19:51)
[2019-07-12] MEDS: furosemide 20MG tablet PO SCH (08:28)
[2019-07-12] MEDS: levoTHYROXINE 88mcg tablet PO SCH (08:28)
[2019-07-12] MEDS: lisinopril 10 MG tablet PO SCH (08:29)
[2019-07-12 11:00] VITALS: BP 116/65
[2019-07-12] MEDS: atorvastatin 20mg tablet PO SCH (17:45)
--- NOTE | 2019-07-12 18:12 | NUR ---
Patient in room [facility]. I have received report from TATY Webster and had the opportunity to ask questions and assume patient care.
[2019-07-12 19:23] VITALS: BP 99/40
[2019-07-12] MEDS: celeCOXIB 100mg capsule PO SCH (19:51)
[2019-07-12] MEDS: ALPRAZolam 0.5mg tablet PO PRN (22:07)
[2019-07-12] MEDS: polyethylene glycol 3350 17gm powd pack PO SCH (22:07)
[2019-07-13 00:03] VITALS: BP 120/52
--- NOTE | 2019-07-13 06:32 | NUR ---
Problems reprioritized. Patient report given, questions answered & plan of care reviewed with TATY Webster.
[2019-07-13] MEDS: levoTHYROXINE 88mcg tablet PO SCH (07:27)
[2019-07-13] MEDS: celeCOXIB 100mg capsule PO SCH ×2 (07:27→19:56)
[2019-07-13] MEDS: furosemide 20MG tablet PO SCH (07:27)
[2019-07-13] MEDS: docusate sod 100mg capsule PO SCH ×2 (07:27→19:56)
[2019-07-13] MEDS: lisinopril 10 MG tablet PO SCH (07:28)
[2019-07-13] MEDS ORDERED: DOCU-148 PO (07:43)
[2019-07-13 08:00] VITALS: BP 168/65
[2019-07-13] MEDS: HYDROcodone/acetaminophen 5mg/325mg tablet PO PRN ×3 (09:28→23:11)
[2019-07-13] MEDS: sodium chloride 0.45% 1,000 ML IV SCH (11:29)
[2019-07-13] MEDS: ondansetron/PF 4mg/2ml inj IV PRN (12:58)
--- NOTE | 2019-07-13 13:22 | NUR ---
Malnutrition consult: Patient's current scaled weight is -4 kg from most recent documented wt of 86 kg taken 04/30/18 which is a patient stated weight, this is non-significant wt loss of 5% in greater than one year. Patient's diet has just been advanced to regular from liquids, pending documentation of PO intake since diet advancement. Pt averaging 0-25% up to 50% at dinner last night while on liquid diet. Pt s/p nephrectomy, decreased appetite is expected after surgery. LBM 07/07, also likely to impact appetite. Pt receiving routine bowel care and routine Reglan has just been added to med list. Pt with no significant decrease in muscle strength or edema. Pt currently lacks a minimum of two criteria for malnutrition. Will continue to follow and monitor PO trends with diet advancement and need for ONS. Addendum: 07/13/19 at [address] Amended: Links added.
[2019-07-13] MEDS: atorvastatin 20mg tablet PO SCH (17:51)
--- NOTE | 2019-07-13 18:27 | NUR ---
Patient in room [facility]. I have received report from TATY Webster and had the opportunity to ask questions and assume patient care. Addendum: 07/13/19 at 1827 by Polly Barrios RN Amended: Links added.
[2019-07-13 20:00] VITALS: BP 131/51
[2019-07-13] MEDS: polyethylene glycol 3350 17gm powd pack PO SCH (23:11)
[2019-07-13] MEDS: ALPRAZolam 0.5mg tablet PO PRN (23:11)
[2019-07-13 23:56] VITALS: BP 173/72
[2019-07-14] MEDS: sodium chloride 0.45% 1,000 ML IV SCH ×2 (01:36→12:37)
[2019-07-14] MEDS: HYDROcodone/acetaminophen 5mg/325mg tablet PO PRN ×4 (04:39→17:10)
--- NOTE | 2019-07-14 06:00 | NUR ---
Patient in room [facility]. I have received report from Yanci Cain RN and had the opportunity to ask questions and assume patient care.
--- NOTE | 2019-07-14 06:01 | NUR ---
Problems reprioritized. Patient report given, questions answered & plan of care reviewed with TATY Rodriguez.
[2019-07-14] MEDS: levoTHYROXINE 88mcg tablet PO SCH (07:11)
[2019-07-14] MEDS: celeCOXIB 100mg capsule PO SCH (07:11)
[2019-07-14] MEDS: furosemide 20MG tablet PO SCH (07:12)
[2019-07-14] MEDS: lisinopril 10 MG tablet PO SCH (07:13)
[2019-07-14] MEDS: docusate sod 100mg capsule PO SCH (07:13)
[2019-07-14 07:25] VITALS: BP 167/63
--- NOTE | 2019-07-14 12:06 | NUR ---
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 Pt currently on a full liquid diet documented with average 25% PO intake not meeting nutrient needs. Pt seen at bedside reports low appetite since surgery however states food sounds good and pt usually with a good appetite. Pt reports she had a regular diet dinner tray last night however was unable to tolerate it so she is back on full liquids. Pt states tolerating some food on the liquid diet however at times has abdominal pain following PO intake. Pt working with data entry clerk for food preferences, to receive a shake with lunch today. Pt agrees to try vanilla Ensure Enlive with meals to optimize PO intake, discussed recommendation for ONS with RN. Pt denies food allergies or difficulty chewing/swallowing. LBM documented as 07/07 however pt reports large BM this morning. Hopefully patient's tolerance to PO intake will improve since no longer constipated. Pt provided with RD contact information and encouraged to reach out for any further food preferences. Will continue to follow closely. Recommendations: 1) Advance to regular diet as medically indicated 2) Vanilla Ensure Enlive TID, d/w RN 3) Encourage PO intake 4) Routine bowel care Addendum: 07/14/19 at [address] Amended: Links added.
[2019-07-14 12:21] VITALS: BP 130/59
[2019-07-14] MEDS: atorvastatin 20mg tablet PO SCH (17:09)
--- NOTE | 2019-07-14 17:47 | NUR ---
patient discharged home into the care of daughter Maribeth, patient educated about usage of moraes and provided educational printouts as well. Patient left with all belongings, patient verbalized understanding of discharge instructions. Patient alert, oriented, and appropriate for discharge. Patient will follow up with MD Hernandez and states already has appointment. Patient escorted down by a member of the staff, no tele, iv's removed. Moraes left in place.
--- NOTE | 2019-07-16 11:55 | NUR ---
Case management DC follow up: spoke to pt via telephone: Post Nephrectomy. reports "not doing too bad Denies acute/continuous cp, emergent general pain, SOB, resp distress, NV, dizziness, abd pain, BAINS, blurry vision, syncope episodes, abnormal bruising/bleeding, flank pain. denies s/s to surg site, FC working properly, draining to gravity, clear, yellow. Compliant w/aftercare, Daughter, Beverly is caring for pt. Verbalizes understanding of s/s that would warrant 9-11/ER visit for evaluation. acknowledges need to follow up w/PCP Dr Hendrix who will follow up w/pt via phone when receive pt records/ specialist Dr West 07/20/19, hoping to have FC removed at that time. Verbalizes understanding of new/continued meds & why prescribed; taking Rx as ordered, no ase noted r/t polypharmacy. pt advanced from liquid diet to solid foods. LBM 07/14/19, taking mirilax QHS, and colace as ordered. needs met, questions answered at DC, no further questions at this time.
== END 2019-07-14 18:50 | disposition home or self-care (01) | DRG 658 ==
LOC: PAS IN 05:34 → UNDOADMIN 05:34 → EDSTATUS 07:30 → PAS IN 11:07 → SUR 3N 12:16
PROVIDERS: ADMIT Urology; ATTEND Urology
PROC: 0TT14ZZ Resection of Left Kidney, Percutaneous Endoscopic Approach (ICD-10-PCS; principal; 2019-07-09 07:19)
DX: C64.2 Malignant neoplasm of left kidney, except renal pelvis (principal); R11.0 Nausea; R33.9 Retention of urine, unspecified; E03.9 Hypothyroidism, unspecified; F41.9 Anxiety disorder, unspecified; N18.3 Chronic kidney disease, stage 3 (moderate); I12.9 Hypertensive chronic kidney disease with stage 1 through stage 4 chronic kidney disease, or unspecified chronic kidney disease; Z96.653 Presence of artificial knee joint, bilateral; Z88.8 Allergy status to other drugs, medicaments and biological substances; Z98.51 Tubal ligation status
CPT/HCPCS: 36415; 71046; 80048; 80053; 82948; 84443; 85025; 85610; 85730; 86885; 86900; 86901; 86920; 87081; 88307; A4215; A4618; A7000; C1758; G0378; J0131; J1100; J2001; J2250; J2405; J2704; J3010; J3480; J7030; J7120; J8597